=== PATIENT | male | born 1990 | race Caucasian/White ===

== ENCOUNTER 2024-04-04 18:00 | Emergency (ER) | payer BC ==
[2024-04-04] MEDS: Diphtheria,Pertussis(Acell),Tetanus Vaccine 0.5 ML Syringe IM ONE (18:34)
== END 2024-04-04 18:40 | disposition home or self-care (01) ==
LOC: KA.ED 18:00
DX: S61.213A Laceration without foreign body of left middle finger without damage to nail, initial encounter (principal); Z91.018 Allergy to other foods; Z23 Encounter for immunization; Z88.8 Allergy status to other drugs, medicaments and biological substances; Z79.899 Other long term (current) drug therapy; W26.0XXA Contact with knife, initial encounter; Y93.89 Activity, other specified
CPT/HCPCS: 12001; 90471; 90715; 99282-25; 99283